=== PATIENT | female | born 1935 | race African-American/Black ===

== ENCOUNTER 2018-06-18 06:28 | Inpatient (IN) ==
[2018-06-18] MEDS ORDERED: Thrombin Topical Soln 5,000 UNIT Vial TOPICAL ONE (06:49)
[2018-06-18] MEDS ORDERED: Bupivacaine/Epinephrine PF Inj 0.5% 30 ML Vial ONE (06:49)
[2018-06-18] MEDS ORDERED: Gelatin Size 100 Topical Foam ONE (06:49)
[2018-06-18] MEDS ORDERED: HYDROmorphone PF Inj 2 MG/ML Vial ONE (06:52)
[2018-06-18] MEDS ORDERED: Sugammadex Inj 200 MG/2 ML Vial IV.PUSH ONE (06:52)
[2018-06-18] MEDS ORDERED: Propofol Inj 500 MG/50 ML Vial ONE (06:53)
[2018-06-18] MEDS ORDERED: Sodium Chlor 0.9% Inj 250 ML ONE (07:44)
[2018-06-18] MEDS ORDERED: Metoprolol Tartrate 25 MG Tablet PO ONE (07:45)
[2018-06-18] MEDS ORDERED: Sodium Chlor 0.9% Inj 500 ML IV.CONT ONE (07:45)
[2018-06-18] MEDS ORDERED: Chlorhexidine Gluconate 2% 1 Pack (2 Cloths) TOPICAL ONE (07:45)
[2018-06-18] MEDS: Vancomycin Inj 1,000 MG in Sodium Chlor 0.9% Inj 250 ML IV.SIG SCH ×2 (07:50→10:46)
[2018-06-18] MEDS: Sod Chloride 0.9% Inj 1,000 ML IV.SIG SCH (07:51)
[2018-06-18] MEDS ORDERED: Bupivacaine Liposomal PF 1.3% Inj 20 ML Vial INFILTRATN ONE (12:07)
[2018-06-18] MEDS ORDERED: Diphenoxylate/Atropine 2.5/0.025 MG Tablet PO PRN (12:20)
[2018-06-18] MEDS ORDERED: Magnesium Sulfate Inj 2 GM in Sodium Chlor 0.9% Inj 96 ML IV.SIG PRN (12:22)
[2018-06-18] MEDS ORDERED: Morphine Sulfate Inj 2 MG/ML Vial IV.PUSH PRN (12:22)
[2018-06-18] MEDS ORDERED: Bisacodyl 10 MG Supp RECTAL PRN (12:22)
[2018-06-18] MEDS ORDERED: Menthol 5.8 MG Lozenge BUCCAL PRN (12:22)
[2018-06-18] MEDS ORDERED: Acetaminophen 325 MG Tablet PO PRN (12:22)
[2018-06-18] MEDS ORDERED: Calcium Gluconate Inj 1 GM in Sodium Chlor 0.9% Inj 100 ML IV.SIG PRN (12:22)
[2018-06-18] MEDS ORDERED: Aluminum/Magnesium/Simethacone Susp 30 ML UDC PO PRN (12:22)
[2018-06-18] MEDS ORDERED: Potassium Chlor 20 mEq Premix 20 MEQ/100 ML PIGGYBACK IV.SIG PRN (12:22)
--- NOTE | 2018-06-18 12:33 | P.OP ---
- Preoperative Diagnosis (1) Stenosis of cervical spine with myelopathy (2) History of cervical spinal arthrodesis Date of procedure: 06/18/18 Procedure: Posterior cervical C4, C5, and C6 autograft fusion; C4, C5 and C6 decompressive laminectomies; C4-C6 bilateral lateral mass fixation; microsurgical technique Anesthesia: MARYA Surgeon: Quinton Guerrero MD Pig Lead Melter Helper: Jing Corbett Estimated blood loss (mL): 30 Operation and Findings: Following administration of general endotracheal anesthesia with the neck maintained in neutral position in a [place] J collar, patient had a Mckinney catheter placed with sequential compression devices. A gram of vancomycin was administered intravenously. She was then turned on a prone position on a Wolfgang table and the head secured in a horseshoe headrest and all pressure points adequately padded. Posterior cervical region was then shaved and prepped with Betadine solution and ChloraPrep. Sterile draping undertaken along with Ioban and a midline incision extending from the C4 to the C6 was then made after infiltrating the skin was 0.5% Marcaine with epinephrine solution. Intraoperative fluoroscopy used for level confirmation. Retractors were used for exposure after the fascia incised and the muscular attachments to the spinous process and lamina along with the facets detached from C4 to C6 levels bilaterally. Further dissection was undertaken using microtechnique with microscope magnification. I drilled out the lamina at the junction of the facets from C4 to C6 levels bilaterally and an en bloc laminectomy undertaken for decompression the spinal canal. The ligamentum flavum were also resected with Kerrisons. The facets on both sides decorticated with a curette. Subsequently lateral mass fixation undertaken with the ExacTech screws with entry point of the midportion of the facet on both sides from C4 to C6 levels. The screw trajectory was lateral and superiorly guided with fluoroscopy also. Screws were then connected with a colin and locked in place with caps. The construct appeared to be secure this point in AP and lateral fossae confirmed good placement and alignment. The decorticated facets were then packed from C4 to C6 levels were then packed it with the local autograft morselized bone for posterolateral fusion. The area was then copiously irrigated with antibody solution laminectomy edges and hemostasis achieved with bone wax along with Gelfoam and thrombin. Retractors removed and the muscle and fascia using 2-0 Vicryl interrupted sutures and 3-0 Vicryl subcuticular stitch also placed in an interrupted fashion and Exparel local anesthetic injected into the fascia and muscle and final skin closure was with shawnee. A sterile dressing was applied and the neck immobilized in a [place] J collar. She was then turned in supine position and extubated and taken to recovery room. There were no intraoperative complications and all sponge and needle count was correct at the end the procedure. Estimated blood loss about 30 cc. Patient did undergo intraoperative neurologic monitoring which remained stable throughout surgery.
[2018-06-18] MEDS ORDERED: *Labetalol HCl Inj 100 MG/20 ML Vial PERIprocedural Use ONLY IV.PUSH ONE (12:41)
[2018-06-18] MEDS ORDERED: ceFAZolin 1 GM Premix Inj 1 GM/50 ML PIGGYBACK IV.SIG ONE (13:11)
[2018-06-18] MEDS ORDERED: fentaNYL Citrate Inj 100 MCG/2 ML Ampul ONE (13:11)
[2018-06-18] MEDS ORDERED: Morphine Inj 4 MG/ML Vial ONE (13:11)
--- NOTE | 2018-06-18 13:28 | XR ---
EXAM DATE: 06/18/2018 1:19 PM EST AGE/SEX: 83 years / Female INDICATIONS: Post-op C4-C5, C5-C6 posterior cervical fusion. CLINICAL DATA: This is the patient's initial encounter. Patient reports that signs and symptoms have been present for 1 day and indicates a pain score of Nonresponsive. MEDICAL/SURGICAL HISTORY: Non-responsive. Fusion, cervical. COMPARISON: [facility] [place], SPINE LUMBAR LATERAL ONLY, 08/12/2012. . FINDINGS: Status post patient is status post anterior cervical fusion at C3-4 and posterior cervical fusion fro m C3-4 to C6. Alignment appears anatomic in the lateral projection. CONCLUSION: Fusion as above. Electronically signed by: Ludin Washington MD 06/18/2018 1:27 PM EST
[2018-06-18] MEDS ORDERED: *morphine SULFATE 4 MG/ML PERIprocedure ONLY ONE (13:38)
[2018-06-18 14:11] LABS: Baso % (Auto) 0.5 % (0.0-2.0); Eos # (Auto) 0.1 th/mm3 (0.0-0.4); Eos % (Auto) 1.6 % (0.0-4.0); Hematocrit 37.8 % (35.0-46.0); Hemoglobin 12.2 gm/dL (11.6-15.3); Lymph # (Auto) 0.9 th/mm3 (1.0-4.8); Lymph % (Auto) 14.4 % (9.0-44.0); Mean Corpuscular HGB Conc 32.2 % (32.0-36.0); Mean Corpuscular Hemoglobin 23.4 pg (27.0-34.0); Mean Corpuscular Volume 72.6 fL (80.0-100.0); Mean Platelet Volume 8.7 fL (7.0-11.0); Mono # (Auto) 0.2 th/mm3 (0.0-0.9); Mono % (Auto) 2.7 % (0.0-8.0); Neut # (Auto) 5.1 th/mm3 (1.8-7.7); Neut % (Auto) 80.8 % (16.0-70.0); Platelet Count 183 th/mm3 (150-450); Red Cell Distribution Width 18.6 % (11.6-17.2); White Blood Count 6.3 th/mm3 (4.0-11.0)
[2018-06-18 14:14] LABS: Anion Gap 11 meq/L (5-15); Blood Urea Nitrogen 14 mg/dL (7-18); Calcium 8.8 mg/dL (8.5-10.1); Chloride 106 meq/L (98-107); Glomerular Filtration Rate Greater Than 89 mL/min (>89); Glucose,Random 115 mg/dL (74-106); Magnesium 2.1 mg/dL (1.5-2.5); Potassium 3.6 meq/L (3.5-5.1); Sodium 142 meq/L (136-145)
--- NOTE | 2018-06-18 17:37 | P.CONIM ---
History of Present Illness Service: [facility] Reason for Consult: Medical management Primary Care Provider: Delgado Dubose MD History of Present Illness: 83-year-old female with a medical history significant for hypertension, hyperlipidemia, CAD, TIA, cervical spinal osteoarthritis with myelopathy admitted by neurosurgery for elective posterior cervical C5, C6, and C7 fusion; C5, C6 and C7 decompressive laminectomies; C5- C7 bilateral lateral mass fixation; microsurgical technique. Hospitalist service consulted for medical management. The patient is seen postoperatively. She reports she is feeling okay and pain is controlled. We reviewed her medical history in detail. Patient apparently failed conservative management which prompted the surgery. Review of Systems Except for as stated in the HPI Review of Systems: all other systems reviewed are negative [facility] Medical History Medical History H/O TIA (transient ischemic attack) and stroke (Acute) Anxiety (Acute) Cataracts, bilateral (Acute) Chronic back pain (Acute) Depression (Acute) High cholesterol (Acute) Hypertension (Acute) Neurodermatitis (Acute) Wears glasses (Acute) Surgical History Surgical History H/O Spinal surgery (Acute) H/O blepharoplasty (Acute) Hx of tonsillectomy (Acute) Social History Social History Substance History: No History of Abuse Second Hand Smoke Exposure: Yes Smoking Status: Light tobacco smoker Tobacco Type: Cigarettes How Often Do You Have a Drink Containing Alcohol: Monthly or less Recent Travel in [facility] within the Last 8 Weeks: No Recent Out of Country Travel within the Last 8 Weeks: No Substance Abuse Detail Marijuana: Route Used Substance Abuse: Inhalation Substance Frequency: infrequent Medications and Allergies Allergies Allergy/AdvReac Type Severity Reaction Status Date / Time crab Allergy Severe nausea Verified 06/18/18 07:08 and vomiting Home Medications Medication Instructions Recorded Confirmed Type Bifidobacterium infantis [Align] 8 mg PO DAILY 06/11/18 06/18/18 History azelastine 2 spray INTRANASAL DAILY 06/11/18 06/18/18 History benazepril-hydrochlorothiazide 1 tab PO BID 06/11/18 06/18/18 History bupropion HCl 100 mg PO DAILY 06/11/18 06/18/18 History clopidogrel 75 mg PO DAILY 06/11/18 06/18/18 History diphenoxylate-atropine 1 tab PO Q6-8H PRN 06/11/18 06/18/18 History hydroxyzine HCl 25 mg PO TID PRN 06/11/18 06/18/18 History rosuvastatin [Crestor] 20 mg PO DAILY 06/11/18 06/18/18 History sertraline 100 mg PO DAILY 06/11/18 06/18/18 History verapamil 120 mg PO DAILY 06/11/18 06/18/18 History travoprost [Travatan Z] 1 drp OPHTHALMIC (EYE) QPM 06/13/18 06/18/18 History Active Medications: Active Medications Acetaminophen (Tylenol) 650 mg PO Q4H PRN PRN Reason: TEMPERATURE > 101.5 F Hydrocodone Bitart/Acetaminophen ([place] 10/325) 1 tab PO Q4H PRN PRN Reason: Pain Scale 1 To 5 Hydrocodone Bitart/Acetaminophen ([place] 10/325) 2 tab PO Q4H PRN PRN Reason: PAIN SCALE 6 TO 10 Al Hydrox/Mg Hydrox/Simethicone (Mag-Al Plus Susp Liq) 30 ml PO Q6H PRN PRN Reason: DYSPEPSIA Al Hydroxide/Mg Hydroxide (Milk Of Magnesia Liq) 30 ml PO Q12H PRN PRN Reason: Mild Constipation Albuterol (Albuterol Neb (Prn)) 2.5 mg NEB Q4HR NEB PRN PRN Reason: WHEEZING Atorvastatin Calcium (Lipitor) 40 mg PO DAILY ANTONIO Bisacodyl (Dulcolax Supp) 10 mg RECTAL DAILY PRN PRN Reason: SEVERE CONSITIPATION Bupropion HCl (Wellbutrin) 100 mg PO DAILY ANTONIO Clonidine HCl (Catapres) 0.1 mg NG/OG Q6H PRN PRN Reason: SYS BP GREATER THAN 170 MMHG Cyclobenzaprine HCl (Flexeril) 10 mg PO Q8H PRN PRN Reason: MUSCLE SPASM Diphenoxylate HCl/Atropine (Lomotil) 1 tab PO Q6H PRN PRN Reason: Diarrhea Hydrochlorothiazide (Microzide) 12.5 mg PO BID ANTONIO Hydroxyzine HCl (Atarax) 25 mg PO TID PRN PRN Reason: Anxiety Lactated Ringer's (Lr 1000 Ml Inj) 1,000 mls @ 30 mls/hr IV.CONT .Q24H ONE Stop: 06/19/18 07:44 Last Admin: 06/18/18 07:51 Dose: 30 mls/hr Sodium Chloride (Ns Inj) 500 mls @ 30 mls/hr IV.CONT .[id number] ONE Stop: 06/19/18 00:24 Last Admin: 06/18/18 07:50 Dose: Not Given Vancomycin HCl 1,000 mg/ (Sodium Chloride) 250 mls @ 250 mls/hr IV.SIG [facility] Stop: 06/21/18 07:59 Last Infusion: 06/18/18 14:28 Dose: Infused Sodium Chloride (Ns Inj) 1,000 mls @ 30 mls/hr IV.SIG .Q24H [facility] Last Admin: 06/18/18 07:51 Dose: Not Given Calcium Gluconate 1 gm/ Sodium (Chloride) 110 mls @ 110 mls/hr IV.SIG UNSCH PRN PRN Reason: SEE LABEL COMMENTS Magnesium Sulfate 2 gm/ Sodium (Chloride) 100 mls @ 100 mls/hr IV.SIG UNSCH PRN PRN Reason: MAGNESIUM LESS THAN 2 Potassium Chloride/Sodium Chloride (Ns + Kcl 20 Meq Inj) 1,000 mls @ 100 mls/ hr IV.CONT .Q10H [facility] Stop: 06/18/18 22:29 Last Admin: 06/18/18 14:03 Dose: 100 mls/hr Potassium Chloride (Kcl 20 Meq Premix Inj) 20 meq in 100 mls @ 50 mls/hr IV.SIG UNSCH PRN PRN Reason: POTASSIUM LESS THAN 4 Cefazolin Sodium/Dextrose (Ancef 1 Gm Premix Inj) 1 gm in 50 mls @ 100 mls/hr IV.SIG Q8H [facility] Stop: 06/19/18 06:29 Lactulose (Lactulose Liq) 30 ml PO DAILY PRN PRN Reason: SEVERE CONSITIPATION Latanoprost (Xalatan 0.005% Opth Drops) 1 drop EACH EYE QPM ANTONIO Lisinopril (Prinivil) 1 mg PO BID ANTONIO Menthol (Gallagher) 1 lozenge BUCCAL UNSCH PRN PRN Reason: SORE THROAT Miscellaneous Information (Misc Nursing Information) 0 each OTHER UNSCH PRN PRN Reason: SEE LABEL COMMENTS Stop: 06/19/18 12:18 Morphine Sulfate (Morphine Inj) 2 mg IV.PUSH Q2H PRN PRN Reason: BREAKTHROUGH PAIN Pantoprazole Sodium (Protonix) 40 mg PO DAILY [facility] Pt Own Med: ( Azelastine Nasal [place]) 0 each NASAL DAILY [facility] Senna/Docusate Sodium (Brittany-Colace) 1 tab PO BID [facility] Sennosides (Senokot) 17.2 mg PO Q12H PRN PRN Reason: Moderate Constipation Sertraline HCl (Zoloft) 100 mg PO DAILY [facility] Verapamil HCl (Isoptin Sr) 120 mg PO DAILY [facility] Zolpidem Tartrate (Ambien) 5 mg PO HS PRN PRN Reason: INSOMNIA Physical Exam Vital signs: Last Vital Signs Temp 97.6 F 06/18/18 16:30 Pulse 80 06/18/18 16:30 Resp 18 06/18/18 16:30 BP 152/76 H 06/18/18 16:30 Pulse Ox 97 06/18/18 16:30 Intake & Output 06/16/18 06/17/18 06/18/18 06/19/18 06:59 06:59 06:59 06:59 Intake Total 2400 / 2400 Output Total 230 / 230 Balance 2170 / 2170 Weight 68.4 kg Narrative: GENERAL: Elderly female in no apparent distress. HEENT: [place] J collar in place. Dressing appear intact. CARDIOVASCULAR: Normal rate and regular rhythm without murmurs, gallops, or rubs. RESPIRATORY: Good respiratory efforts. Breath sounds equal and clear to auscultation bilaterally. GASTROINTESTINAL: Abdomen soft, non-tender, non-distended. Normal active bowel sounds MUSCULOSKELETAL: Extremities without cyanosis, or edema. NEURO: Alert & Oriented x4 to person, place, time, situation. Moves all ext x4. Equal strength. PSYCH: Appropriate mood and affect. Results Labs CBC & Chem 7: 06/18/18 13:18 06/18/18 13:18 Imaging Impressions Cervical Spine X-Ray 06/18/18 00:00 CONCLUSION: Fusion as above. ABG Impressions Cervical Spine X-Ray 06/18/18 00:00 CONCLUSION: Fusion as above. Assessment and Plan Plan 83-year-old female with a medical history significant for hypertension, hyperlipidemia, CAD, cervical spinal osteoarthritis with myelopathy admitted by neurosurgery for elective posterior cervical C5, C6, and C7 fusion; C5, C6 and C7 decompressive laminectomies; C5-C7 bilateral lateral mass fixation; microsurgical technique. Hospitalist service following for medical management. Status post cervical fusion and decompressive laminectomy: - Postoperative care per neurosurgery - Pain control - Early physical therapy Hypertension: Continue verapamil and lisinopril. Hyperlipidemia: - Continue statin History of TIA: - Continue Plavix. GI prophylaxis:Stool softener PRN constipation. DVT PPx: SCDs.
[2018-06-18] MEDS: Latanoprost 0.005% Opth Drops 2.5 ML Bottle EACH EYE SCH (18:13)
[2018-06-18] MEDS: Lisinopril 10 MG Tablet PO SCH (20:55)
[2018-06-18] MEDS: Senna/Docusate Sodium 8.6/50 MG Tablet PO SCH (20:56)
[2018-06-18] MEDS: ceFAZolin 1 GM Premix Inj 1 GM/50 ML PIGGYBACK IV.SIG SCH (21:00)
[2018-06-18] MEDS ORDERED: Zolpidem Tartrate 5 MG Tablet PO PRN (21:00)
[2018-06-19] MEDS: ceFAZolin 1 GM Premix Inj 1 GM/50 ML PIGGYBACK IV.SIG SCH (06:05)
[2018-06-19] MEDS: Sod Chloride 0.9% Inj 1,000 ML IV.SIG SCH (06:47)
[2018-06-19] MEDS: Lisinopril 10 MG Tablet PO SCH ×3 (08:07→21:11)
[2018-06-19] MEDS: buPROPion 100 MG Tablet PO SCH (08:09)
[2018-06-19] MEDS: Sertraline 50 MG Tablet PO SCH (08:09)
[2018-06-19] MEDS: Senna/Docusate Sodium 8.6/50 MG Tablet PO SCH ×2 (08:10→20:55)
[2018-06-19] MEDS ORDERED: BIFIDOBACTERIUM INFANTIS PO SCH (09:00)
[2018-06-19] MEDS ORDERED: AZELASTINE NASAL SCH (09:00)
--- NOTE | 2018-06-19 10:39 | P.PNNS ---
Subjective Interval history: Pt s/p Posterior cervical C4, C5, and C6 autograft fusion; C4, C5 and C6 decompressive laminectomies; C4-C6 bilateral lateral mass fixation; microsurgical technique on 06/18/18. She complains of pain in the left shoulder with difficulty lifting her LUE above shoulder level secondary to pain. She states its not weak but painful. No chest pain or sob. <Erick Chopra - Last Filed: 06/19/18 10:25> Physical Exam Vital signs: Vital Signs 06/18/18 12:18 06/18/18 12:30 06/18/18 12:40 Temperature 94.7 F L Pulse Rate 78 85 Respiratory Rate 8 L 12 Blood Pressure 156/74 H 189/96 H Pulse Oximetry 94 L 94 L 06/18/18 12:45 06/18/18 13:00 06/18/18 13:15 Temperature 96.4 F L Pulse Rate 80 72 68 Respiratory Rate 12 14 14 Blood Pressure 170/80 H 172/86 H 176/89 H Pulse Oximetry 95 96 100 06/18/18 13:30 06/18/18 13:45 06/18/18 14:00 Temperature Pulse Rate 72 70 70 Respiratory Rate 14 14 14 Blood Pressure 172/82 H 149/76 H 154/80 H Pulse Oximetry 99 100 100 06/18/18 14:15 06/18/18 16:30 06/18/18 20:00 Temperature 97.7 F 97.6 F 97.6 F Pulse Rate 70 80 96 H Respiratory Rate 14 18 18 Blood Pressure 154/80 H 152/76 H 161/78 H Pulse Oximetry 100 97 95 06/19/18 00:00 06/19/18 04:00 06/19/18 08:00 Temperature 97.6 F 97.7 F 97.9 F Pulse Rate 97 H 95 H 93 H Respiratory Rate 18 18 22 Blood Pressure 160/77 H 159/76 H 167/89 H Pulse Oximetry 96 96 96 Intake & Output 06/18/18 06/19/18 06/19/18 18:59 06:59 18:59 Intake Total 2400 / 2400 50 / 50 2190 / 2190 Output Total 230 / 230 Balance 2170 / 2170 50 / 50 2190 / 2190 Weight 68.4 kg Intake: IV 600 / 600 50 / 50 1950 / 1950 LR 1000 mL Inj 1,000 ML @ 30 900 / 900 mls/hr IV.CONT .Q24H ONE Rx#: [id number] NS + KCl 20 mEq Inj 1,000 ML @ 1000 / 1000 100 mls/hr IV.CONT .Q10H ANTONIO Rx #:[id number] Vancomycin Inj 1,000 MG In NS 500 / 500 Inj 250 ML @ 250 mls/hr 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 ANTONIO Rx#:[id number] Ancef 1 GM Premix Inj 1 gm In 50 / 50 50 / 50 50 ml @ 100 mls/hr IV.SIG Q8H ANTONIO Rx#:[id number] Ancef Inj 1,000 MG In NS Inj 100 / 100 100 ML @ 200 mls/hr IV.SIG Q8H ANTONIO Rx#:[id number] Oral 240 / 240 Anesthesia Amount 1800 / 1800 Output: Estimated Blood Loss 30 / 30 Urine Amount (Catheter) 200 / 200 Indwelling Urethral Catheter 200 / 200 Other: Weight On Admission 68.4 kg - Constitutional no acute distress, cooperative - Routine HEENT Exam Head: Present: normocephalic Eye: Present: PERRL - Routine Neck Exam Present: trachea midline - Routine Respiratory Exam Present: CTA bilaterally. Absent: respiratory distress, rhonchi, wheezes - Routine Cardiovascular Exam Present: RRR, S1, S2. Absent: murmur - Routine Abdominal Exam Present: soft, normoactive bowel sounds. Absent: distended, firm - Routine Skin Exam Absent: cyanosis, erythema Comments: Incision clean and dry without signs of infection or complication. - Routine Neurological Exam Present: alert, motor deficit (Good strength in RUE and LUE biceps, triceps, and HI, left deltoid limited secondary to pain.), moving all extremities, normal speech - Routine Psychiatric Exam Present: normal affect, cooperative - Urinary Catheter Management Indwelling Urethral Catheter Cath placed during this visit: yes, but has since been removed by the nurse Reason for continuing: Decision to DC catheter Removal date: 06/18/18 Removal time: 14:25 <Erick Chopra - Last Filed: 06/19/18 10:25> Vital signs: Vital Signs 06/19/18 11:56 06/19/18 16:00 06/19/18 20:00 Temperature 98.1 F 98.3 F 98.3 F Pulse Rate 89 86 96 H Respiratory Rate 20 18 20 Blood Pressure 138/58 L 144/75 H 170/82 H Pulse Oximetry 97 95 95 06/20/18 00:00 06/20/18 04:00 Temperature 98.8 F 98.0 F Pulse Rate 100 H 89 Respiratory Rate 20 20 Blood Pressure 164/79 H 155/84 H Pulse Oximetry 95 95 Intake & Output 06/19/18 06/20/18 06/20/18 18:59 06:59 18:59 Intake Total 2190 / 2190 Output Total 700 / 700 Balance 2190 / 2190 -700 / -700 Intake: IV 1950 / 1950 LR 1000 mL Inj 1,000 ML @ 30 900 / 900 mls/hr IV.CONT .Q24H ONE Rx#: [id number] NS + KCl 20 mEq Inj 1,000 ML @ 1000 / 1000 100 mls/hr IV.CONT .Q10H ANTONIO Rx #:[id number] Ancef 1 GM Premix Inj 1 gm In 50 / 50 50 ml @ 100 mls/hr IV.SIG Q8H ANTONIO Rx#:[id number] Oral 240 / 240 Output: Urine 700 / 700 Other: # Voids 1 2 - Urinary Catheter Management Indwelling Urethral Catheter Cath placed during this visit: no <Quinton Guerrero - Last Filed: 06/20/18 08:34> Assessment and Plan - Assessment (1) Stenosis of cervical spine with myelopathy Code(s): M47.12 - Other spondylosis with myelopathy, cervical region Status: Chronic (2) History of cervical spinal arthrodesis Code(s): Z98.1 - Arthrodesis status Status: Chronic - Plan A: 83 y/o FM s/p Posterior cervical C4, C5, and C6 autograft fusion; C4, C5 and C6 decompressive laminectomies; C4-C6 bilateral lateral mass fixation; microsurgical technique. P: Continue with pain control Rehab efforts Continue with cervical collar. <Erick Chopra - Last Filed: 06/19/18 10:25> - Attending Attestation The exam, history, and the medical decision-making described in the above note were completed with the assistance of the mid-level provider. I reviewed and agree with the findings presented. I attest that I had a [id number] encounter with the patient on the same day, and personally performed and documented my assessment and findings in the medical record. Overall doing well postoperatively with incisional pain controlled. Ambulated with physical therapy. Given her significant myelopathy prior to surgery and also she resides alone at home she will benefit from rehabilitation placement. <Quinton Guerrero - Last Filed: 06/20/18 08:34>
[2018-06-19] MEDS: Latanoprost 0.005% Opth Drops 2.5 ML Bottle EACH EYE SCH (17:11)
--- NOTE | 2018-06-19 18:28 | P.PNIM ---
Subjective Interval history: Late entry. Patient seen earlier today around 10 AM. She reports she is feeling okay today. Pain is controlled with medications. No weakness in her arm or legs. Has been up in a chair today. Physical Exam Vital signs: Last Vital Signs Temp 98.3 F 06/19/18 16:00 Pulse 86 06/19/18 16:00 Resp 18 06/19/18 16:00 BP 144/75 H 06/19/18 16:00 Pulse Ox 95 06/19/18 16:00 Intake & Output 06/17/18 06/18/18 06/19/18 06/20/18 06:59 06:59 06:59 06:59 Intake Total 2450 / 2450 2190 / 2190 Output Total 230 / 230 Balance 2220 / 2220 2190 / 2190 Weight 68.4 kg Narrative: GENERAL: Elderly female in no apparent distress. HEENT: [place] J collar in place. Dressing appear intact. CARDIOVASCULAR: Normal rate and regular rhythm without murmurs, gallops, or rubs. RESPIRATORY: Good respiratory efforts. Breath sounds equal and clear to auscultation bilaterally. GASTROINTESTINAL: Abdomen soft, non-tender, non-distended. Normal active bowel sounds MUSCULOSKELETAL: Extremities without cyanosis, or edema. NEURO: Alert & Oriented x4 to person, place, time, situation. Moves all ext x4. Equal strength. PSYCH: Appropriate mood and affect. Urinary Catheter Management Indwelling Urethral Catheter: Cath placed during this visit: yes, but has since been removed by the nurse Removal date: 06/18/18 Removal time: 14:25 Results Labs CBC & Chem 7: 06/18/18 13:18 06/18/18 13:18 Assessment and Plan (1) Stenosis of cervical spine with myelopathy: Code(s): M47.12 - Other spondylosis with myelopathy, cervical region Status: Chronic (2) History of cervical spinal arthrodesis: Code(s): Z98.1 - Arthrodesis status Status: Chronic Plan 83-year-old female with a medical history significant for hypertension, hyperlipidemia, CAD, cervical spinal osteoarthritis with myelopathy admitted by neurosurgery for elective posterior cervical C5, C6, and C7 fusion; C5, C6 and C7 decompressive laminectomies; C5-C7 bilateral lateral mass fixation; microsurgical technique. Hospitalist service following for medical management. Status post cervical fusion and decompressive laminectomy: - Postoperative care per neurosurgery - Pain control - Early physical therapy Hypertension: Continue verapamil and lisinopril. BP acceptable. Hyperlipidemia: - Continue statin History of TIA: - Continue Plavix. GI prophylaxis:Stool softener PRN constipation. DVT PPx: SCDs. Progress Note: Quality VTE Deep Vein Thrombosis/Pulmonary Embolism Present on Admission: No
[2018-06-20] MEDS: buPROPion 100 MG Tablet PO SCH (09:31)
[2018-06-20] MEDS: Sertraline 50 MG Tablet PO SCH (09:31)
[2018-06-20] MEDS: Lisinopril 10 MG Tablet PO SCH (09:32)
[2018-06-20] MEDS: Senna/Docusate Sodium 8.6/50 MG Tablet PO SCH (09:32)
[2018-06-20 09:50] VITALS: RESP 18; O2SAT 94
--- NOTE | 2018-06-20 10:42 | P.PNNS ---
Subjective Interval history: Pt awake and alert. Complains of pain across her shoulders. Pain more intense today. Some pain extending into the left deltoid area. No chest pain or sob. She has some limited ROM and difficulty lifting LUE to shoulder level secondary to pain. <Erick Chopra - Last Filed: 06/20/18 10:37> Physical Exam Vital signs: Vital Signs 06/19/18 11:56 06/19/18 16:00 06/19/18 20:00 Temperature 98.1 F 98.3 F 98.3 F Pulse Rate 89 86 96 H Respiratory Rate 20 18 20 Blood Pressure 138/58 L 144/75 H 170/82 H Pulse Oximetry 97 95 95 06/20/18 00:00 06/20/18 04:00 06/20/18 08:00 Temperature 98.8 F 98.0 F 99.0 F Pulse Rate 100 H 89 81 Respiratory Rate 20 20 18 Blood Pressure 164/79 H 155/84 H 153/72 H Pulse Oximetry 95 95 94 L Intake & Output 06/19/18 06/20/18 06/20/18 18:59 06:59 18:59 Intake Total 2190 / 2190 Output Total 700 / 700 Balance 2190 / 2190 -700 / -700 Intake: IV 1950 / 1950 LR 1000 mL Inj 1,000 ML @ 30 900 / 900 mls/hr IV.CONT .Q24H [facility] Rx#: [id number] NS + KCl 20 mEq Inj 1,000 ML @ 1000 / 1000 100 mls/hr IV.CONT .Q10H [facility] Rx #:[id number] Ancef 1 GM Premix Inj 1 gm In 50 / 50 50 ml @ 100 mls/hr IV.SIG Q8H [facility] Rx#:[id number] Oral 240 / 240 Output: Urine 700 / 700 Other: # Voids 1 2 - Constitutional no acute distress - Routine HEENT Exam Head: Present: normocephalic Eye: Present: PERRL - Routine Neck Exam Present: trachea midline Comments: Posterior cervical incision clean and dry. New bandage placed. - Routine Respiratory Exam Present: CTA bilaterally. Absent: respiratory distress, rhonchi, wheezes - Routine Cardiovascular Exam Present: RRR, S1, S2. Absent: murmur - Routine Abdominal Exam Present: soft, normoactive bowel sounds. Absent: distended, firm - Routine Skin Exam Absent: cyanosis, erythema Comments: Posterior cervical incision with sh[place] in place. No signs of infection or complication. - Routine Neurological Exam Present: alert, motor deficit (left deltoid/shoulder weakness with difficulty lifting up to shoulder level from pain.), moving all extremities (with weakness noted in left shoulder pt reports from pain rather than weakness.). Absent: sensory deficit - Urinary Catheter Management Indwelling Urethral Catheter Cath placed during this visit: yes, but has since been removed by the nurse Reason for continuing: Decision to DC catheter Removal date: 06/18/18 Removal time: 14:25 <Erick Chopra - Last Filed: 06/20/18 10:37> Vital signs: Vital Signs 06/19/18 16:00 06/19/18 20:00 06/20/18 00:00 Temperature 98.3 F 98.3 F 98.8 F Pulse Rate 86 96 H 100 H Respiratory Rate 18 20 20 Blood Pressure 144/75 H 170/82 H 164/79 H Pulse Oximetry 95 95 95 06/20/18 04:00 06/20/18 08:00 Temperature 98.0 F 99.0 F Pulse Rate 89 81 Respiratory Rate 20 18 Blood Pressure 155/84 H 153/72 H Pulse Oximetry 95 94 L Intake & Output 06/19/18 06/20/18 06/20/18 18:59 06:59 18:59 Intake Total 2190 / 2190 Output Total 700 / 700 Balance 2190 / 2190 -700 / -700 Intake: IV 1950 / 1950 LR 1000 mL Inj 1,000 ML @ 30 900 / 900 mls/hr IV.CONT .Q24H [facility] Rx#: [id number] NS + KCl 20 mEq Inj 1,000 ML @ 1000 / 1000 100 mls/hr IV.CONT .Q10H [facility] Rx #:[id number] Ancef 1 GM Premix Inj 1 gm In 50 / 50 50 ml @ 100 mls/hr IV.SIG Q8H [facility] Rx#:[id number] Oral 240 / 240 Output: Urine 700 / 700 Other: # Voids 1 2 - Urinary Catheter Management Indwelling Urethral Catheter Cath placed during this visit: no <Quinton Guerrero - Last Filed: 06/20/18 12:27> Assessment and Plan - Assessment (1) Stenosis of cervical spine with myelopathy Code(s): M47.12 - Other spondylosis with myelopathy, cervical region Status: Chronic (2) History of cervical spinal arthrodesis Code(s): Z98.1 - Arthrodesis status Status: Chronic - Plan A: 83 y/o FM s/p Posterior cervical C4, C5, and C6 autograft fusion; C4, C5 and C6 decompressive laminectomies; C4-C6 bilateral lateral mass fixation; microsurgical technique. P: Continue with pain control Rehab efforts Continue with cervical collar. Lidoderm patch to the left trapezius area. <Erick Chopra - Last Filed: 06/20/18 10:37> - Attending Attestation The exam, history, and the medical decision-making described in the above note were completed with the assistance of the mid-level provider. I reviewed and agree with the findings presented. I attest that I had a [id number] encounter with the patient on the same day, and personally performed and documented my assessment and findings in the medical record. Incisional pain and paraspinal left shoulder muscle spasms responds well to norco and flexeril. Plan rehab placement saturday. <Quinton Guerrero - Last Filed: 06/20/18 12:27>
[2018-06-20] MEDS ORDERED: Lidocaine 5% Patch T-DERMAL SCH (10:45)
--- NOTE | 2018-06-20 11:02 | P.PN ---
Subjective Interval history: C/o pain shoulders left side started lidoderm patch per neurosx Patient feels better. Able to eat. No n/v/d/c. Sattign well on room air. No fever or chills Plan to go to [facility] Physical Exam Vital signs: Vital Signs 06/19/18 11:56 06/19/18 16:00 06/19/18 20:00 Temperature 98.1 F 98.3 F 98.3 F Pulse Rate 89 86 96 H Respiratory Rate 20 18 20 Blood Pressure 138/58 L 144/75 H 170/82 H Pulse Oximetry 97 95 95 06/20/18 00:00 06/20/18 04:00 06/20/18 08:00 Temperature 98.8 F 98.0 F 99.0 F Pulse Rate 100 H 89 81 Respiratory Rate 20 20 18 Blood Pressure 164/79 H 155/84 H 153/72 H Pulse Oximetry 95 95 94 L Intake & Output 06/19/18 06/20/18 06/20/18 18:59 06:59 18:59 Intake Total 2190 / 2190 Output Total 700 / 700 Balance 2190 / 2190 -700 / -700 Intake: IV 1950 / 1950 LR 1000 mL Inj 1,000 ML @ 30 900 / 900 mls/hr IV.CONT .Q24H [facility] Rx#: [id number] NS + KCl 20 mEq Inj 1,000 ML @ 1000 / 1000 100 mls/hr IV.CONT .Q10H [facility] Rx #:[id number] Ancef 1 GM Premix Inj 1 gm In 50 / 50 50 ml @ 100 mls/hr IV.SIG Q8H [facility] Rx#:[id number] Oral 240 / 240 Output: Urine 700 / 700 Other: # Voids 1 2 Narrative: GENERAL: 83 yo female, appears in some pain. HEENT: [place] J collar in place. Dressing appear intact. CARDIOVASCULAR: Normal rate and regular rhythm without murmurs, gallops, or rubs. RESPIRATORY: Good respiratory efforts. Breath sounds equal and clear to auscultation bilaterally. GASTROINTESTINAL: Abdomen soft, non-tender, non-distended. Normal active bowel sounds MUSCULOSKELETAL: Extremities without cyanosis, or edema. Pain sholders and trapezius left> right NEURO: Alert & Oriented x4 to person, place, time, situation. Moves all ext x4. Equal strength. PSYCH: Appropriate mood and affect. - Urinary Catheter Management Indwelling Urethral Catheter Cath placed during this visit: yes, but has since been removed by the nurse Reason for continuing: Decision to DC catheter Removal date: 06/18/18 Removal time: 14:25 Results - Labs CBC & Chem 7: 06/18/18 13:18 06/18/18 13:18 Assessment and Plan - Assessment (1) Stenosis of cervical spine with myelopathy Code(s): M47.12 - Other spondylosis with myelopathy, cervical region Status: Chronic (2) History of cervical spinal arthrodesis Code(s): Z98.1 - Arthrodesis status Status: Chronic - Plan 83-year-old female with a medical history significant for hypertension, hyperlipidemia, CAD, cervical spinal osteoarthritis with myelopathy admitted by neurosurgery for elective posterior cervical C5, C6, and C7 fusion; C5, C6 and C7 decompressive laminectomies; C5-C7 bilateral lateral mass fixation; microsurgical technique. Hospitalist service following for medical management. Status post cervical fusion and decompressive laminectomy: - Postoperative care per neurosurgery - Pain control - Early physical therapy - Add lidoderm patch left trapezius Hypertension: Continue verapamil and lisinopril. BP acceptable. Hyperlipidemia: - Continue statin History of TIA: - Continue Plavix. GI prophylaxis:Stool softener PRN constipation. DVT PPx: SCDs. DC plan. Continue rehab efforts Plan to [facility]
[2018-06-20 13:08] VITALS: BP 126/76; PULSE 89; TEMP 99.4
== END 2018-06-20 18:52 ==
LOC: HSDI 06:28 → N05 14:38
PROVIDERS: ADMIT Neurological Surgery; ATTEND Neurological Surgery
DX: G89.29 Other chronic pain; F41.9 Anxiety disorder, unspecified; E78.5 Hyperlipidemia, unspecified; M47.12 Other spondylosis with myelopathy, cervical region; Z79.02 Long term (current) use of antithrombotics/antiplatelets; F17.210 Nicotine dependence, cigarettes, uncomplicated; I10 Essential (primary) hypertension; I25.10 Atherosclerotic heart disease of native coronary artery without angina pectoris; Z86.73 Personal history of transient ischemic attack (TIA), and cerebral infarction without residual deficits; M48.02 Spinal stenosis, cervical region; F32.9 Major depressive disorder, single episode, unspecified; Z79.899 Other long term (current) drug therapy